=== PATIENT | female | born 1955 | race Caucasian/White ===

== ENCOUNTER 2016-11-05 22:22 | Emergency (ER) | payer BC ==
[~2016-11-05] VITALS: Ht 162.6 cm; Wt 54.0 kg
[~2016-11-05 22:22] MED LIST: COMMODE 3:1; EFFE25TA; FIORIC PO; PERC5TAB12 PO; PROM1SUP12 PR; RIVA10 PO; WALKER ROLLING; ZOFR8TAB PO
[2016-11-05 22:24] VITALS: BP 193/86; PULSE 60; RESP 16; TEMP 98.2; O2SAT 100
[2016-11-06] MEDS ORDERED: MECL-62 PO (00:51)
[2016-11-06] MEDS ORDERED: ZOFR4TAB PO (00:51)
[2016-11-06] MEDS ORDERED: PROM25TA5 PO (03:57)
== END 2016-11-05 23:50 | disposition left against medical advice (07) ==
LOC: NED 22:22
DX: R68.89 Other general symptoms and signs (principal)
CPT/HCPCS: 99281

== ENCOUNTER 2016-11-06 00:09 | Emergency (ER) | payer BC ==
[~2016-11-06] VITALS: Ht 162.6 cm; Wt 55.4 kg
[2016-11-06 00:28] VITALS: BP 111/59; PULSE 87; RESP 22; TEMP 98.8; O2SAT 98
[2016-11-06 00:43] VITALS: BP 111/59; PULSE 87; RESP 22; TEMP 98.8; O2SAT 98
[2016-11-06] MEDS ORDERED: MECL-62 PO (00:51)
[2016-11-06] MEDS ORDERED: ZOFR4TAB PO (00:51)
[2016-11-06] MEDS ORDERED: ONDANSETRON HCL 4 MG/2 ML VIAL ONE (01:11)
[2016-11-06 01:23] LABS: BASOPHIL # 0.4 TH/MM3 (0-0.2); BASOPHIL % 3.9 % (0.0-2.0); HEMATOCRIT 41.2 % (35.0-46.0); HEMO FLAGS DIFF FINAL; LYMPH % 3.5 % (9.0-44.0); LYMPHOCYTE # 0.4 TH/MM3 (1.0-4.8); MEAN CELL VOLUME 89.6 FL (80.0-100.0); MEAN CORPUSCULAR HEMOGLOBIN 30.3 PG (27.0-34.0); MEAN CORPUSCULAR HGB CONC 33.8 % (32.0-36.0); NEUT % 88.6 % (16.0-70.0); PLATELET COUNT 185 TH/MM3 (150-450); RED CELL DISTRIBUTION WIDTH 11.1 % (11.6-17.2); WHITE BLOOD COUNT 11.3 TH/MM3 (4.0-11.0)
[2016-11-06 01:44] LABS: CHLORIDE 106 MEQ/L (98-107); SODIUM (NA) 138 MEQ/L (136-145)
[2016-11-06 01:48] LABS: ANION GAP 10 MEQ/L (5-15); BICARBONATE 22.3 MEQ/L (21.0-32.0)
[2016-11-06 01:49] LABS: BLOOD UREA NITROGEN 16 MG/DL (7-18)
[2016-11-06 01:50] VITALS: BP 125/79; PULSE 87; RESP 18; O2SAT 99
[2016-11-06 01:51] LABS: ALT (GPT) 15 U/L (10-53); AST (GOT) 15 U/L (15-37)
[2016-11-06 01:52] LABS: GLOMERULAR FILTRATION RATE 85 ML/MIN (>89)
[2016-11-06 01:53] LABS: TOTAL BILIRUBIN ADULT 0.7 MG/DL (0.2-1.0)
[2016-11-06 01:54] LABS: ALKALINE PHOSPHATASE 69 U/L (45-117)
[2016-11-06] MEDS ORDERED: SODIUM CHLOR 0.9% 1000 ML INJ 1,000 ML IV SCH (02:03)
[2016-11-06] MEDS ORDERED: ONDANSETRON HCL 4 MG/2 ML VIAL IV ONE (02:15)
[2016-11-06] MEDS ORDERED: ONDANSETRON HCL 4 MG/2 ML VIAL IVP ONE (02:15)
--- NOTE | 2016-11-06 02:15 | PD ---
HPI Chief Complaint: Dizziness Time Seen by Provider: 02:02 Travel History International Travel<30 days: No Contact w/Intl Traveler<30days: No Traveled to known affect area: No History of Present Illness HPI The patient is a 61-year-old female that complains of vertigo and vomiting for 10 hours. She states when she starts vomiting she cannot stop. She denies any diarrhea. She does feel dehydrated. She went to [facility] first but would not be semen a timely fashion there so she came out here. Her friend drove the car. She denies any focal neurologic change. She does have a history of migraine headaches. [facility] Past Medical History Diminished Hearing: No Immunizations Current: Yes Migraines: Yes ?: Not : 3 Para: 2 Miscarriage: 1 Past Surgical History Tonsillectomy: Yes Social History Alcohol Use: No Tobacco Use: No Substance Use: No Allergies-Medications (Allergen,Severity, Reaction): Coded Allergies: No Known Allergies (Verified , 11/05/16) Reported Meds & Prescriptions Reported Meds & Active Scripts Active Reported Meclizine (Meclizine HCl) 25 Mg Tab 25 Mg PO DIRECTED PRN Zofran (Ondansetron HCl) 4 Mg Tab 4 Mg PO Q6HR PRN Review of Systems Except as stated in HPI: all other systems reviewed are Neg Physical Exam Narrative GENERAL: The patient is alert, oriented 3, slightly dehydrated-appearing, anxious in moderate apparent distress with her nausea. Her vital signs show respiratory rate of 22 but are otherwise normal. SKIN: Warm and dry. HEAD: Atraumatic. Normocephalic. EYES: Pupils equal and round. No scleral icterus. No injection or drainage. ENT: No nasal bleeding or discharge. Mucous membranes pink and moist. NECK: Trachea midline. No JVD. CARDIOVASCULAR: Regular rate and rhythm. No murmur appreciated. RESPIRATORY: No accessory muscle use. Clear to auscultation. Breath sounds equal bilaterally. GASTROINTESTINAL: Abdomen soft, non-tender, nondistended. Hepatic and splenic margins not palpable. No guarding or rebound is present. MUSCULOSKELETAL: No obvious deformities. No clubbing. No cyanosis. No edema. NEUROLOGICAL: Awake and alert. No obvious cranial nerve deficits. Motor grossly within normal limits. Normal speech. PSYCHIATRIC: The patient is anxious; insight and judgment normal. Data Data Last Documented VS Vital Signs Date Time Temp Pulse Resp B/P Pulse Ox O2 Delivery O2 Flow Rate FiO2 11/06/16 01:50 87 18 125/79 99 Room Air 11/06/16 00:43 98.8 Orders Complete Blood Count With Diff (11/06/16 01:09) Comprehensive Metabolic Panel (11/06/16 01:09) Ondansetron Inj (Zofran Inj) (11/06/16 01:11) Ondansetron Inj (Zofran Inj) (11/06/16 02:15) Sodium Chlor 0.9% 1000 Ml Inj (Ns 1000 M (11/06/16 02:03) Ondansetron Inj (Zofran Inj) (11/06/16 02:15) Sodium Chlor 0.9% 1000 Ml Inj (Ns 1000 M (11/06/16 02:15) Lipase (11/06/16 01:30) Lorazepam Inj (Ativan Inj) (11/06/16 02:45) Hydromorphone Pf Inj (Dilaudid Pf Inj) (11/06/16 02:45) Metoclopramide Inj (Reglan Inj) (11/06/16 03:15) Potassium Chloride (Kcl) (11/06/16 04:00) Labs Laboratory Tests Test 11/06/16 11/06/16 01:15 01:30 White Blood Count 11.3 TH/MM3 Red Blood Count 4.60 MIL/MM3 Hemoglobin 13.9 GM/DL Hematocrit 41.2 % Mean Corpuscular Volume 89.6 FL Mean Corpuscular Hemoglobin 30.3 PG Mean Corpuscular Hemoglobin 33.8 % Concent Red Cell Distribution Width 11.1 % Platelet Count 185 TH/MM3 Mean Platelet Volume 8.9 FL Neutrophils (%) (Auto) 88.6 % Lymphocytes (%) (Auto) 3.5 % Monocytes (%) (Auto) 4.0 % Eosinophils (%) (Auto) 0.0 % Basophils (%) (Auto) 3.9 % Neutrophils # (Auto) 10.0 TH/MM3 Lymphocytes # (Auto) 0.4 TH/MM3 Monocytes # (Auto) 0.5 TH/MM3 Eosinophils # (Auto) 0.0 TH/MM3 Basophils # (Auto) 0.4 TH/MM3 CBC Comment DIFF FINAL Differential Comment Sodium Level 138 MEQ/L Potassium Level 3.0 MEQ/L Chloride Level 106 MEQ/L Carbon Dioxide Level 22.3 MEQ/L Anion Gap 10 MEQ/L Blood Urea Nitrogen 16 MG/DL Creatinine 0.70 MG/DL Estimat Glomerular Filtration 85 ML/MIN Rate Random Glucose 137 MG/DL Calcium Level 8.5 MG/DL Total Bilirubin 0.7 MG/DL Aspartate Amino Transf 15 U/L (AST/SGOT) Alanine Aminotransferase 15 U/L (ALT/SGPT) Alkaline Phosphatase 69 U/L Total Protein 7.0 GM/DL Albumin 3.7 GM/DL Lipase 87 U/L [facility] Medical Decision Making Medical Screen Exam Complete: Yes Emergency Medical Condition: Yes Medical Record Reviewed: Yes Interpretation(s) The CBC shows a white count of 11,300 but is otherwise unremarkable. The complete metabolic profile shows potassium 3.0, glucose 137, GFR of 85 but is otherwise normal. The lipase is normal. Differential Diagnosis Vertigo with vomiting, gastritis, gastroparesis, electrolyte disorder, dehydration, hypo-/hyperglycemia, pancreatitis Narrative Course It is now 0350 and the patient feels much better and is no longer vomiting. She will be given Phenergan for nausea stick with clear liquids in the next 24 hours. Follow-up with her primary care physician this week. Diagnosis Primary Impression: Gastroenteritis Additional Instructions: I hope that you can follow up with your primary care physician this week. For the first 24 hours stick with clear liquids only, no solid foods. Clear liquids include Gatorade, water and Pedialyte. Make sure that you stay well- hydrated. If worse, return to the emergency department. Med/Other Pt SpecificInfo: Prescription(s) given Scripts Promethazine (Phenergan)25 Mg Tab25 Mg PO Q4HR PRN (Nausea/Vomiting) #30 TAB Ref 0 Prov:Tom Padron MD 11/06/16 Disposition: 01 DISCHARGE HOME Condition: Stable Tom Padron MD Nov 06, 2016 02:14
[2016-11-06] MEDS: SODIUM CHLOR 0.9% 1000 ML INJ 1,000 ML IV SCH ×2 (02:45→02:56)
[2016-11-06] MEDS ORDERED: LORazepam 2 MG/ML VIAL IV PUSH ONE (02:45)
[2016-11-06] MEDS ORDERED: HYDROmorphone HCL PF 1 MG/ML VIAL IVP ONE (02:45)
[2016-11-06] MEDS ORDERED: METOCLOPRAMIDE HCL 10 MG/2 ML VIAL IVS ONE (03:15)
[2016-11-06] MEDS ORDERED: PROM25TA5 PO (03:57)
[2016-11-06] MEDS ORDERED: POTASSIUM CHLORIDE 20 MEQ CONTROLLED RELEASE TAB PO ONE (04:00)
[2016-11-06 04:33] VITALS: BP 109/79
== END 2016-11-06 04:47 | disposition home or self-care (01) ==
LOC: PHED 00:09
DX: K52.9 Noninfective gastroenteritis and colitis, unspecified (principal)
CPT/HCPCS: 80053; 83690; 85025; 96361; 96374; 96375; 99284; J2060; J2405; J2765; J7030

== ENCOUNTER 2017-06-12 02:32 | Emergency (ER) | payer BC ==
[~2017-06-12] VITALS: Ht 160 cm; Wt 59.7 kg
[~2017-06-12 02:32] MED LIST changes: -COMMODE 3:1; -EFFE25TA; -FIORIC PO; +MECL-62 PO; -PERC5TAB12 PO; -PROM1SUP12 PR; +PROM25TA5 PO; -RIVA10 PO; -WALKER ROLLING; +ZOFR4TAB PO; -ZOFR8TAB PO
[2017-06-12 02:43] VITALS: BP 159/76; PULSE 91; RESP 26; TEMP 98.9; O2SAT 97
[2017-06-12] MEDS ORDERED: BUTA1CAP PO ×2 (03:03→04:22)
[2017-06-12] MEDS ORDERED: MAXA5TAB2 (03:03)
[2017-06-12 03:05] VITALS: BP 159/76; PULSE 91; RESP 26; TEMP 98.9; O2SAT 97
[2017-06-12] MEDS ORDERED: SODIUM CHLOR 0.9% 1000 ML INJ 1,000 ML IV ONE (03:28)
[2017-06-12] MEDS ORDERED: PROCHLORPERAZINE INJ 10 MG/2 ML VIAL IVP ONE (03:30)
[2017-06-12] MEDS ORDERED: SODIUM CHLORIDE 0.9% FLUSH 10 ML FLUSH IVF PRN (03:30)
[2017-06-12] MEDS ORDERED: LORazepam 2 MG/ML VIAL IV PUSH ONE (03:30)
[2017-06-12 03:32] VITALS: RESP 20; O2SAT 96
--- NOTE | 2017-06-12 03:37 | PD ---
HPI Chief Complaint: GI Complaint Time Seen by Provider: 03:08 Travel History International Travel<30 days: No Contact w/Intl Traveler<30days: No Traveled to known affect area: No History of Present Illness HPI The patient is a 61-year-old female that complains of nausea vomiting and vertigo tonight. She says she cannot quit vomiting. She has a history of migraine headaches and does have a slight headache of gradual onset tonight as well. She denies any fever or focal neurologic change. She came in here with very similar symptoms in October of this year. She took a triptan orally without relief and her Zofran ODT does not seem to affect the nausea. She says it might even make her more nauseated. PFSH Past Medical History Diminished Hearing: No Immunizations Current: Yes Migraines: Yes Tetanus Vaccination: Unknown Influenza Vaccination: Yes ?: Unknown : 3 Para: 2 Miscarriage: 1 Past Surgical History Tonsillectomy: Yes Social History Alcohol Use: No Tobacco Use: No Substance Use: No Allergies-Medications (Allergen,Severity, Reaction): Coded Allergies: No Known Allergies (Verified , 06/12/17) Reported Meds & Prescriptions Reported Meds & Active Scripts Active Fioricet (Dybklibvhb-Qinahoqppwczs-Kwayumdj) 50-300-40 Mg Cap 1 Cap PO Q4H PRN Phenergan Supp (Promethazine HCl) 25 Mg Supp 25 Mg RECTAL Q6H PRN Prochlorperazine Maleate 10 Mg Tab 10 Mg PO Q6H PRN Ativan (Lorazepam) 1 Mg Tab 1 Mg PO DAILY PRN Reported Maxalt (Rizatriptan Benzoate) 5 Mg Tab Fioricet (Vahdhlghda-Skewpfqtwvhec-Jigpotkf) 50-300-40 Mg Cap 1 Cap PO Q4H PRN Meclizine (Meclizine HCl) 25 Mg Tab 25 Mg PO DIRECTED PRN Zofran (Ondansetron HCl) 4 Mg Tab 4 Mg PO Q6HR PRN Review of Systems Except as stated in HPI: all other systems reviewed are Neg Physical Exam Narrative GENERAL: The patient is alert, oriented 3, anxious in moderate of apparent distress with her nausea. Her vital signs show pulse of 91, respiratory rate of 26, blood pressure 156/76 but otherwise normal. Oximetry is 97%. SKIN: Focused skin assessment warm/dry. No skin rash is seen. HEAD: Atraumatic. Normocephalic. EYES: Pupils equal and round. No scleral icterus. No injection or drainage. Fundi appear sharp and venous pulsations are seen in the upright position. ENT: No nasal bleeding or discharge. Mucous membranes pink and moist. The tympanic membranes are clear and the throat is clear. NECK: Trachea midline. No JVD. There is no meningismus present. CARDIOVASCULAR: Regular rate and rhythm. No murmur appreciated. RESPIRATORY: No accessory muscle use. Clear to auscultation. Breath sounds equal bilaterally. GASTROINTESTINAL: Abdomen soft, non-tender, nondistended. Hepatic and splenic margins not palpable. MUSCULOSKELETAL: No obvious deformities. No clubbing. No cyanosis. No edema. NEUROLOGICAL: Awake and alert. No obvious cranial nerve deficits. Motor grossly within normal limits. Normal speech. PSYCHIATRIC: Appropriate mood and affect; insight and judgment normal. Data Data Last Documented VS Vital Signs Date Time Temp Pulse Resp B/P (MAP) Pulse Ox O2 Delivery O2 Flow Rate FiO2 06/12/17 03:54 90 18 123/61 (81) 96 Room Air 06/12/17 03:05 98.9 Orders Orders Complete Blood Count With Diff (06/12/17 03:28) Basic Metabolic Panel (Bmp) (06/12/17 03:28) Westergren Sedimentation Rate (06/12/17 03:28) Ecg Monitoring (06/12/17 03:28) Iv Access Insert/Monitor (06/12/17 03:28) Oximetry (06/12/17 03:28) Sodium Chloride 0.9% Flush (Ns Flush) (06/12/17 03:30) Prochlorperazine Inj (Compazine Inj) (06/12/17 03:30) Sodium Chlor 0.9% 1000 Ml Inj (Ns 1000 M (06/12/17 03:28) Lorazepam Inj (Ativan Inj) (06/12/17 03:30) Potassium Chloride (Kcl) (06/12/17 04:15) Sodium Chlor 0.9% 1000 Ml Inj (Ns 1000 M (06/12/17 04:30) Labs Laboratory Tests Test 06/12/17 03:30 White Blood Count 13.3 TH/MM3 Red Blood Count 4.28 MIL/MM3 Hemoglobin 13.1 GM/DL Hematocrit 38.3 % Mean Corpuscular Volume 89.4 FL Mean Corpuscular Hemoglobin 30.6 PG Mean Corpuscular Hemoglobin Concent 34.2 % Red Cell Distribution Width 11.6 % Platelet Count 165 TH/MM3 Mean Platelet Volume 9.1 FL Neutrophils (%) (Auto) 89.5 % Lymphocytes (%) (Auto) 2.7 % Monocytes (%) (Auto) 4.2 % Eosinophils (%) (Auto) 0.0 % Basophils (%) (Auto) 3.6 % Neutrophils # (Auto) 11.8 TH/MM3 Lymphocytes # (Auto) 0.4 TH/MM3 Monocytes # (Auto) 0.6 TH/MM3 Eosinophils # (Auto) 0.0 TH/MM3 Basophils # (Auto) 0.5 TH/MM3 CBC Comment DIFF FINAL Differential Comment Erythrocyte Sedimentation Rate 5 mm/hr Blood Urea Nitrogen 20 MG/DL Creatinine 0.77 MG/DL Random Glucose 144 MG/DL Calcium Level 9.0 MG/DL Sodium Level 135 MEQ/L Potassium Level 3.2 MEQ/L Chloride Level 102 MEQ/L Carbon Dioxide Level 23.3 MEQ/L Anion Gap 10 MEQ/L Estimat Glomerular Filtration Rate 76 ML/MIN [facility] Medical Decision Making Medical Screen Exam Complete: Yes Emergency Medical Condition: Yes Medical Record Reviewed: Yes Interpretation(s) The CBC shows a white count of 13,300 with 90% neutrophils. The basic metabolic profile shows a sodium of 135, potassium 3.2, BUN of 20 with GFR of 76 and glucose 144. Differential Diagnosis Vertigo, nausea and vomiting, electrolyte disorder, migraine headache, hypo-/ hyperglycemia, dehydration Narrative Course The patient has vertigo along with nausea and vomiting. She likely had a migraine headache as well. She was also dehydrated. She has a mild hypokalemia and will be given some by mouth potassium that she is feeling better and is able to take by mouth medications. She will be given a second bag of saline IV. Diagnosis Primary Impression: Intractable vomiting with nausea Additional Impression: Vertigo Additional Instructions: Try to stay hydrated at home. If you start vomiting, take the Phenergan suppositories. Follow-up next week with your primary care physician. Med/Other Pt SpecificInfo: Prescription(s) given Scripts Qzoweshfrr-Qwathilcyjxlo-Dvubmqoq (Fioricet) 50-300-40 Mg Cap 1 CAP PO Q4H Y for HEADACHE, #20 CAP 0 Refills Prov: Tom Padron MD 06/12/17 Promethazine Supp (Phenergan Supp) 25 Mg Supp 25 MG RECTAL Q6H Y for NAUSEA OR VOMITING, #28 SUPP 0 Refills Prov: Tom Padron MD 06/12/17 Prochlorperazine Maleate (Prochlorperazine Maleate) 10 Mg Tab 10 MG PO Q6H Y for NAUSEA OR VOMITING, #28 TAB 0 Refills Prov: Tom Padron MD 06/12/17 Lorazepam (Ativan) 1 Mg Tab 1 MG PO DAILY Y for nausea or vomiting, #12 TAB 0 Refills Prov: Tom Padron MD 06/12/17 Disposition: 01 DISCHARGE HOME Condition: Stable Tom Padron MD Jun 12, 2017 03:37
[2017-06-12 03:47] LABS: AUTOMATED NEUTROPHIL # 11.8 TH/MM3 (1.8-7.7); BASOPHIL # 0.5 TH/MM3 (0-0.2); BASOPHIL % 3.6 % (0.0-2.0); HEMATOCRIT 38.3 % (35.0-46.0); HEMO FLAGS DIFF FINAL; LYMPH % 2.7 % (9.0-44.0); LYMPHOCYTE # 0.4 TH/MM3 (1.0-4.8); MEAN CELL VOLUME 89.4 FL (80.0-100.0); MEAN CORPUSCULAR HEMOGLOBIN 30.6 PG (27.0-34.0); MEAN CORPUSCULAR HGB CONC 34.2 % (32.0-36.0); MONO % 4.2 % (0.0-8.0); NEUT % 89.5 % (16.0-70.0); PLATELET COUNT 165 TH/MM3 (150-450); RED BLOOD COUNT 4.28 MIL/MM3 (4.00-5.30); RED CELL DISTRIBUTION WIDTH 11.6 % (11.6-17.2); WHITE BLOOD COUNT 13.3 TH/MM3 (4.0-11.0)
[2017-06-12 03:54] VITALS: BP 123/61; PULSE 90; RESP 18; O2SAT 96
[2017-06-12 03:56] LABS: POTASSIUM 3.2 MEQ/L (3.5-5.1)
[2017-06-12 03:59] LABS: BICARBONATE 23.3 MEQ/L (21.0-32.0)
[2017-06-12] MEDS ORDERED: POTASSIUM CHLORIDE 20 MEQ CONTROLLED RELEASE TAB PO ONE (04:15)
[2017-06-12] MEDS ORDERED: PROM1SUP7 RECTAL (04:22)
[2017-06-12] MEDS ORDERED: PROC10TA PO (04:22)
[2017-06-12] MEDS ORDERED: LORA-474 PO (04:22)
[2017-06-12] MEDS ORDERED: SODIUM CHLOR 0.9% 1000 ML INJ 1,000 ML IV SCH (04:30)
[2017-06-12 05:17] VITALS: BP 135/95
== END 2017-06-12 05:34 | disposition home or self-care (01) ==
LOC: PHED 02:32
DX: R11.2 Nausea with vomiting, unspecified (principal); R42 Dizziness and giddiness; E86.0 Dehydration; E87.6 Hypokalemia; R51 Headache; Z86.69 Personal history of other diseases of the nervous system and sense organs
CPT/HCPCS: 80048; 85025; 85652; 96361; 96374; 96375; 99284; J0780; J2060; J7030